=== PATIENT | male | born 1980 | race Caucasian/White ===

== ENCOUNTER 2016-09-03 12:26 | Inpatient (IN) | payer OTHER ==
[~2016-09-03] VITALS: Ht 172.7 cm; Wt 122.3 kg
[~2016-09-03 12:26] MED LIST: BENTYL10 MG PO; COLACE100 MG PO; MOBIC7.5 MG PO; NEXIUM20 MG PO; PERCOCET 5/31 TABLET PO; ZOFRAN4 MG PO
[2016-09-03 13:37] LABS: HEMATOCRIT 48.2 % (38.0-50.0); MCHC 33.6 G/DL (30.0-36.0); MCV 86.4 FL (86-99); MEAN PLAT.VOLUME 10.9 uM^3 (9.0-12.4); PLATELET COUNT 323 K/uL (156-360); RBC DIS.WIDTH-CV 12.7 % (11.8-14.6); RBC DIS.WIDTH-SD 39.8 % (39-53); RED BLOOD COUNT 5.58 M/uL (4.00-5.50); WHITE BLOOD COUNT 12.7 K/uL (4.1-10.2)
[2016-09-03 13:48] LABS: CHLORIDE 110 mEq/L (99-109); POTASSIUM 4.1 mEq/L (3.7-5.4); SODIUM 143 mEq/L (136-147)
[2016-09-03 13:51] LABS: GLUCOSE 98 mg/dL (70-99)
[2016-09-03 13:52] LABS: ANION GAP 11 MEQ/L (2-14)
[2016-09-03 13:53] LABS: TOTAL BILIRUBIN 0.6 mg/dL (0.0-1.0)
[2016-09-03 13:54] LABS: ALKALINE PHOSPHATASE 74 IU/L (3-129); GFR ESTIMATE (CALCULATED) > 59 mL/min/
[2016-09-03 13:55] LABS: UREA NITROGEN (BUN) 10 mg/dL (9-23)
[2016-09-03 13:58] LABS: LIPASE 17 U/L (1.0-51.0)
[2016-09-03 14:04] LABS: ADD MIUA? YES; BILIRUBIN NEGATIVE; BLOOD SMALL; COLOR YELLOW ((YELLOW)); GLUCOSE (STRIP) NEGATIVE; KETONES NEGATIVE; LEUKOCYTES NEGATIVE; NITRITE NEGATIVE; PROTEIN (STRIP) 30; SPECIFIC GRAVITY 1.018 (1.000-1.030); UROBILINOGEN 0.2 MG/DL (0.2-1.0)
[2016-09-03 14:13] LABS: BACTERIA RARE /HPF; EPITHELIAL CELLS RARE /HPF; MUCUS TRACE /LPF; RED BLOOD CELLS 0-5 /HPF (0-5); UCUL ADDED? NO; WHITE BLOOD CELLS 0-5 /HPF (0-5)
[2016-09-03] MEDS ORDERED: MAGNESIUM200 MG PO (17:36)
[2016-09-03] MEDS ORDERED: B COMPLEX #11 EACH PO (17:36)
[2016-09-03 17:37] LABS: EOSINOPHIL (%) 1.5 % (0-5); EOSINOPHIL COUNT 0.2 K/uL (0-0.3); HEMATOCRIT 44.3 % (38.0-50.0); IMMATURE GRANULOCYTE (%) 0.2 % (0.0-0.7); INSTRUMENT ABS NEUTROPHIL CT 9.5 K/uL; MCH 29.4 PG (29.0-34.0); MCHC 33.9 G/DL (30.0-36.0); MCV 86.9 FL (86-99); MEAN PLAT.VOLUME 10.7 uM^3 (9.0-12.4); MONOCYTE COUNT 1.3 K/uL (0-0.8); NEUTROPHIL (%) 72.6 % (45-76); NEUTROPHIL COUNT 9.5 K/uL (1.8-6.4); PLATELET COUNT 308 K/uL (156-360); RBC DIS.WIDTH-CV 12.7 % (11.8-14.6); RBC DIS.WIDTH-SD 40.1 % (39-53); WHITE BLOOD COUNT 13.1 K/uL (4.1-10.2)
[2016-09-03 19:32] VITALS: BP 121/69
[2016-09-03 19:33] VITALS: BP 121/69
[2016-09-04 05:47] LABS: HEMATOCRIT 39.1 % (38.0-50.0); MCH 30.1 PG (29.0-34.0); MCV 88.5 FL (86-99); MEAN PLAT.VOLUME 10.8 uM^3 (9.0-12.4); PLATELET COUNT 288 K/uL (156-360); RBC DIS.WIDTH-CV 12.9 % (11.8-14.6); RED BLOOD COUNT 4.42 M/uL (4.00-5.50); WHITE BLOOD COUNT 9.1 K/uL (4.1-10.2)
[2016-09-04 06:14] LABS: ANION GAP 8 MEQ/L (2-14); CHLORIDE 113 MEQ/L (99-109); GFR ESTIMATE (CALCULATED) > 59 mL/min/; GLUCOSE 89 mg/dL (70-99); POTASSIUM 4.4 MEQ/L (3.7-5.4); SAMPLE HEMOLYSIS CHECK 0; SAMPLE ICTERIC CHECK 0; SAMPLE LIPEMIA CHECK 0; SODIUM 146 MEQ/L (136-147); UREA NITROGEN (BUN) 12 mg/dL (9-23)
[2016-09-04 07:54] VITALS: BP 102/55
[2016-09-04 11:51] VITALS: BP 111/63
[2016-09-04 15:25] VITALS: BP 99/57
[2016-09-04 19:34] VITALS: BP 124/72
[2016-09-04 23:34] VITALS: BP 108/59
[2016-09-05 05:35] LABS: BASOPHIL COUNT 0.1 K/uL (0-0.1); EOSINOPHIL (%) 3.2 % (0-5); EOSINOPHIL COUNT 0.2 K/uL (0-0.3); HEMATOCRIT 38.3 % (38.0-50.0); IMMATURE GRANULOCYTE (%) 0.1 % (0.0-0.7); INSTRUMENT ABS NEUTROPHIL CT 4.3 K/uL; LYMPHOCYTE COUNT 2.1 K/uL (1.0-2.8); MCH 28.5 PG (29.0-34.0); MCHC 32.4 G/DL (30.0-36.0); MEAN PLAT.VOLUME 10.4 uM^3 (9.0-12.4); MONOCYTE (%) 11.3 % (3-12); MONOCYTE COUNT 0.8 K/uL (0-0.8); NEUTROPHIL (%) 57.1 % (45-76); NEUTROPHIL COUNT 4.3 K/uL (1.8-6.4); PLATELET COUNT 310 K/uL (156-360); RBC DIS.WIDTH-CV 12.5 % (11.8-14.6); RBC DIS.WIDTH-SD 40.2 % (39-53); RED BLOOD COUNT 4.35 M/uL (4.00-5.50); WHITE BLOOD COUNT 7.4 K/uL (4.1-10.2)
[2016-09-05 06:29] LABS: ANION GAP 8 MEQ/L (2-14); CHLORIDE 111 MEQ/L (99-109); GFR ESTIMATE (CALCULATED) > 59 mL/min/; GLUCOSE 89 mg/dL (70-99); POTASSIUM 3.9 MEQ/L (3.7-5.4); SAMPLE HEMOLYSIS CHECK 0; SAMPLE ICTERIC CHECK 0; SAMPLE LIPEMIA CHECK 0; SODIUM 145 MEQ/L (136-147); UREA NITROGEN (BUN) 11 mg/dL (9-23)
[2016-09-05 11:39] VITALS: BP 122/64
[2016-09-05 15:53] VITALS: BP 114/60
[2016-09-05 19:51] VITALS: BP 138/79
[2016-09-05 22:35] VITALS: BP 128/60
[2016-09-06 04:36] VITALS: BP 108/53
[2016-09-06 05:03] LABS: BASOPHIL COUNT 0.1 K/uL (0-0.1); EOSINOPHIL COUNT 0.3 K/uL (0-0.3); IMMATURE GRANULOCYTE (%) 0.6 % (0.0-0.7); IMMATURE GRANULOCYTE COUNT 0.1 K/uL; INSTRUMENT ABS NEUTROPHIL CT 5.7 K/uL; LYMPHOCYTE COUNT 1.7 K/uL (1.0-2.8); MCH 28.7 PG (29.0-34.0); MCHC 33.3 G/DL (30.0-36.0); MCV 86.4 FL (86-99); MEAN PLAT.VOLUME 10.4 uM^3 (9.0-12.4); MONOCYTE (%) 10.7 % (3-12); MONOCYTE COUNT 0.9 K/uL (0-0.8); NEUTROPHIL (%) 65.9 % (45-76); NEUTROPHIL COUNT 5.7 K/uL (1.8-6.4); PLATELET COUNT 316 K/uL (156-360); RBC DIS.WIDTH-CV 12.2 % (11.8-14.6); RBC DIS.WIDTH-SD 39.1 % (39-53); RED BLOOD COUNT 4.63 M/uL (4.00-5.50); WHITE BLOOD COUNT 8.6 K/uL (4.1-10.2)
[2016-09-06 05:44] LABS: ANION GAP 8 MEQ/L (2-14); CHLORIDE 111 MEQ/L (99-109); POTASSIUM 4.3 MEQ/L (3.7-5.4); SAMPLE HEMOLYSIS CHECK 2; SAMPLE ICTERIC CHECK 0; SAMPLE LIPEMIA CHECK 0; SODIUM 142 MEQ/L (136-147)
[2016-09-06 05:50] LABS: GFR ESTIMATE (CALCULATED) > 59 mL/min/; GLUCOSE 81 mg/dL (70-99); UREA NITROGEN (BUN) 10 mg/dL (9-23)
[2016-09-06 07:08] VITALS: BP 132/76
[2016-09-06] MEDS ORDERED: AUGMENTIN875 MG PO (12:17)
[2016-09-06] MEDS ORDERED: ZOFRAN4 MG PO (12:17)
[2016-09-06] MEDS ORDERED: PERCOCET 5/31 TABLET PO (12:17)
[2016-09-06 13:52] VITALS: BP 119/70
== END 2016-09-06 13:46 | disposition home or self-care (01) | DRG 392 ==
LOC: EME 12:26 → 4EAST 17:30 → EDOF 17:30 → 4EAST 19:31
PROVIDERS: Internal Medicine; Nurse Practitioner Family
DX: K57.20 Diverticulitis of large intestine with perforation and abscess without bleeding (principal); E66.01 Morbid (severe) obesity due to excess calories; K21.9 Gastro-esophageal reflux disease without esophagitis; Z68.41 Body mass index [BMI] 40.0-44.9, adult
CPT/HCPCS: 74176; 80048; 80053; 81003; 83605; 83690; 85025; 85027; 86900; 86901; 87040; J1170; J1650; J1885; J2270; J2405; J2543; J7030; J7050; S0028

== ENCOUNTER 2016-09-13 19:11 | Emergency (ER) | payer OTHER ==
[~2016-09-13] VITALS: Ht 172.7 cm; Wt 117.9 kg
[~2016-09-13 19:11] MED LIST changes: +AUGMENTIN875 MG PO; +B COMPLEX #11 EACH PO; +MAGNESIUM200 MG PO
[2016-09-13 20:17] LABS: HEMATOCRIT 47.7 % (38.0-50.0); MCH 28.6 PG (29.0-34.0); MCHC 33.3 G/DL (30.0-36.0); MCV 85.9 FL (86-99); MEAN PLAT.VOLUME 10.3 uM^3 (9.0-12.4); PLATELET COUNT 361 K/uL (156-360); RBC DIS.WIDTH-CV 12.4 % (11.8-14.6); RED BLOOD COUNT 5.55 M/uL (4.00-5.50); WHITE BLOOD COUNT 7.9 K/uL (4.1-10.2)
[2016-09-13 20:23] LABS: CHLORIDE 105 mEq/L (99-109); POTASSIUM 3.5 mEq/L (3.7-5.4); SODIUM 140 mEq/L (136-147)
[2016-09-13 20:24] LABS: GLUCOSE 92 mg/dL (70-99)
[2016-09-13 20:25] LABS: ANION GAP 9 MEQ/L (2-14)
[2016-09-13 20:26] LABS: TOTAL BILIRUBIN 0.6 mg/dL (0.0-1.0)
[2016-09-13 20:27] LABS: ALKALINE PHOSPHATASE 67 IU/L (3-129)
[2016-09-13 20:28] LABS: GFR ESTIMATE (CALCULATED) > 59 mL/min/
[2016-09-13 20:29] LABS: UREA NITROGEN (BUN) 15 mg/dL (9-23)
[2016-09-13 20:34] LABS: ADD MIUA? YES; BILIRUBIN NEGATIVE; BLOOD SMALL; COLOR YELLOW ((YELLOW)); GLUCOSE (STRIP) NEGATIVE; KETONES NEGATIVE; LEUKOCYTES NEGATIVE; NITRITE NEGATIVE; PROTEIN (STRIP) 30; SPECIFIC GRAVITY 1.024 (1.000-1.030); UROBILINOGEN 0.2 MG/DL (0.2-1.0)
[2016-09-13 20:39] LABS: AMYLASE 68 IU/L (1-118)
[2016-09-13 20:40] LABS: BACTERIA NONE SEEN /HPF; EPITHELIAL CELLS NONE SEEN /HPF; MUCUS TRACE /LPF; RED BLOOD CELLS 0-5 /HPF (0-5); UCUL ADDED? NO; WHITE BLOOD CELLS 0-5 /HPF (0-5)
[2016-09-13 20:47] LABS: LIPASE 41 U/L (1.0-51.0)
[2016-09-13 22:40] VITALS: BP 128/90
== END 2016-09-13 22:41 | disposition home or self-care (01) ==
LOC: EME 19:11
DX: R10.12 Left upper quadrant pain (principal); K21.9 Gastro-esophageal reflux disease without esophagitis; Z87.442 Personal history of urinary calculi
CPT/HCPCS: 74177; 80053; 81003; 82150; 83690; 85027; 99281; 99283; J7030

== ENCOUNTER 2016-11-24 15:09 | Emergency (ER) | payer OTHER ==
[~2016-11-24] VITALS: Ht 172.7 cm; Wt 117.8 kg
[2016-11-24 16:44] LABS: HEMATOCRIT 44.9 % (38.0-50.0); MCH 29.1 PG (29.0-34.0); MCHC 33.9 G/DL (30.0-36.0); MCV 85.9 FL (86-99); MEAN PLAT.VOLUME 10.5 uM^3 (9.0-12.4); PLATELET COUNT 273 K/uL (156-360); RBC DIS.WIDTH-CV 12.4 % (11.8-14.6); RBC DIS.WIDTH-SD 39.1 % (39-53); RED BLOOD COUNT 5.23 M/uL (4.00-5.50); WHITE BLOOD COUNT 8.1 K/uL (4.1-10.2)
[2016-11-24 16:55] LABS: CHLORIDE 108 mEq/L (99-109); POTASSIUM 3.8 mEq/L (3.7-5.4); SODIUM 140 mEq/L (136-147)
[2016-11-24 16:57] LABS: GLUCOSE 84 mg/dL (70-99)
[2016-11-24 16:58] LABS: ANION GAP 7 MEQ/L (2-14)
[2016-11-24 16:59] LABS: TOTAL BILIRUBIN 0.7 mg/dL (0.0-1.0)
[2016-11-24 17:00] LABS: ALKALINE PHOSPHATASE 59 IU/L (3-129); GFR ESTIMATE (CALCULATED) > 59 mL/min/
[2016-11-24 17:01] LABS: UREA NITROGEN (BUN) 14 mg/dL (9-23)
[2016-11-24 17:04] LABS: ADD MIUA? NO; BILIRUBIN NEGATIVE; BLOOD NEGATIVE; COLOR YELLOW ((YELLOW)); GLUCOSE (STRIP) NEGATIVE; KETONES NEGATIVE; LEUKOCYTES NEGATIVE; NITRITE NEGATIVE; PROTEIN (STRIP) NEGATIVE; SPECIFIC GRAVITY 1.024 (1.000-1.030)
[2016-11-24] MEDS ORDERED: FLAGYL500 MG PO (18:10)
[2016-11-24] MEDS ORDERED: CIPRO500 MG PO (18:10)
[2016-11-24] MEDS ORDERED: NORCO 5/3251 TABLET PO (18:10)
[2016-11-24 18:24] VITALS: BP 119/64
== END 2016-11-24 18:28 | disposition home or self-care (01) ==
LOC: EME 15:09
PROVIDERS: Physician Assistant
DX: K57.92 Diverticulitis of intestine, part unspecified, without perforation or abscess without bleeding (principal); K21.9 Gastro-esophageal reflux disease without esophagitis; Z87.442 Personal history of urinary calculi
CPT/HCPCS: 74177; 80053; 81003; 85027; 99281; 99285; J7040